=== PATIENT | female | born 1970 | race Caucasian/White ===

== ENCOUNTER 2018-09-02 09:20 | Outpatient (CLI) | payer OTHER ==
--- NOTE | 2018-09-02 16:00 | Consultation ---
DATE OF CONSULTATION: 09/02/2018 CONSULTING PHYSICIAN: Hiram Ward M.D. CHIEF COMPLAINT: Abdominal pain. HISTORY OF PRESENT ILLNESS: This is a very pleasant 48-year-old female without any significant past medical history presented with complaint of abdominal pain in the epigastric area lasted for almost 10 days. She took 2 weeks of Prilosec, which completely resolved the pain, but she had another episode a few months ago before that and she is here with concerns about her pain. Denies any hematemesis. No dysphagia. No odynophagia. No melena. No hematochezia. PAST MEDICAL HISTORY: None. PAST SURGICAL HISTORY: None. MEDICATIONS: None. FAMILY HISTORY: Grandmother had breast cancer. SOCIAL HISTORY: The patient denies any tobacco, alcohol, or drug abuse. ALLERGIES: No known drug allergies. REVIEW OF SYSTEMS: A 10-point review of systems was performed and pertinent positives in HPI. PHYSICAL EXAMINATION: GENERAL: This is a well-developed female, in no acute distress. HEENT: Normocephalic and atraumatic. Sclerae anicteric. NECK: Supple. No evidence of obvious lymphadenopathy. CARDIOVASCULAR: Regular rate and rhythm. Plus S1 and S2. No obvious murmur. LUNGS: Clear to auscultation bilaterally. ABDOMEN: Positive bowel sounds. Soft, nontender. No rebound. No guarding. No peritoneal sign. EXTREMITIES: No cyanosis. No clubbing. No edema. ASSESSMENT AND PLAN: This is a 48-year-old female with abdominal pain. Differential diagnosis include gastritis, gastric ulcerations, gallbladder disease. The patient to be scheduled for endoscopy to rule out gastric ulcer. Order abdominal ultrasound to rule out gallstones. We will follow. At this time, the patient seems to be symptomatic. Hiram Ward M.D. DR: MACKENZIE JOB#: [id number] CC:
== END 2018-09-02 11:20 | disposition home or self-care (01) ==
LOC: PAN 09:20
DX: R10.13 Epigastric pain (principal); Z80.3 Family history of malignant neoplasm of breast